=== PATIENT | female | born 1955 | race Caucasian/White ===

== ENCOUNTER 2022-11-26 20:22 | Inpatient (IN) | payer MEDICARE, MEDICAID ==
[~2022-11-26] VITALS: Ht 157.5 cm; Wt 79.6 kg
[2022-11-26 23:29] LABS: ANION GAP 10 mmol/L (8-16); CARBON DIOXIDE 28 mmol/L (22-29); CHLORIDE 101 mmol/L (98-107); CREATININE 0.63 mg/dL (0.60-1.30); GLOMERULAR FILTR. RATE CALC > 60 mL/min (>60); GLUCOSE,RANDOM 115 mg/dL (70-110); POTASSIUM 3.6 mmol/L (3.5-5.1); SODIUM SERUM 139 mmol/L (136-145)
[2022-11-26 23:35] LABS: ALANINE AMINOTRANSFERASE 58 U/L (12-78); ALKALINE PHOSPHATASE 71 U/L (46-116); ASPARTATE AMINOTRANSFERASE 58 U/L (15-37); BILIRUBIN,TOTAL 0.3 mg/dL (0.1-1.0); TOTAL PROTEIN, SERUM 7.1 g/dL (6.4-8.2)
[2022-11-26 23:44] LABS: BASOPHILS % (AUTO) 0.7 % (0.0-2.0); HEMATOCRIT 37.6 % (36-46); HEMOGLOBIN 12.2 g/dL (12.0-16.0); LYMPHOCYTES # (AUTO) 1.6 K/uL (1.0-4.8); LYMPHOCYTES % (AUTO) 20.3 % (22.0-44.0); MEAN CORPUSCULAR HEMOGLOBIN 27.6 pg (26.0-34.0); MEAN CORPUSCULAR HGB CONC 32.4 G/dL (31.0-37.0); MEAN CORPUSCULAR VOLUME 85 fL (80-100); MONOCYTES # (AUTO) 0.9 K/uL (0.1-1.0); MONOCYTES % (AUTO) 11.5 % (2.0-9.0); NEUTROPHILS # (AUTO) 5.1 K/uL (1.8-7.7); NEUTROPHILS % (AUTO) 66.5 % (40.0-70.0); PLATELET COUNT (AUTO) 136 K/uL (150-450); RED BLOOD CELL COUNT(AUTO) 4.41 MIL/uL (4.00-5.20); RED CELL DISTRIBUTION WIDTH 16.7 % (11.5-14.5)
[2022-11-27] MEDS ORDERED: SODIUM CHLORIDE 0.9% 1,000 ML IV ONE (00:15)
[2022-11-27 00:19] LABS: COVID AG,FIA SOURCE NASAL SWAB
[2022-11-27] MEDS ORDERED: MAGNESIUM SULFATE 2 GM, MVI, ADULT NO.1 WITH VIT K 10 ML, THIAMINE 100 MG, FOLIC ACID 1... IV ONE ×10 (02:00)
[2022-11-27] MEDS ORDERED: LORazepam 2 MG TABLET PO ONE (04:15)
[2022-11-27 06:43] LABS: AMPHET/METH SCREEN,URINE NEGATIVE (NEGATIVE); BARBITURATE SCREEN, URINE NEGATIVE (NEGATIVE); BENZODIAZEPINES SCREEN,URINE NEGATIVE (NEGATIVE); CANNABINOID SCREEN,URINE NEGATIVE (NEGATIVE); COCAINE SCREEN,URINE NEGATIVE (NEGATIVE); METHADONE SCREEN, URINE NEGATIVE (NEGATIVE); OPIATE SCREEN,URINE NEGATIVE (NEGATIVE); PHENCYCLIDINE SCREEN,URINE NEGATIVE (NEGATIVE)
[2022-11-27] MEDS ORDERED: LORazepam 1 MG TABLET PO ONE (10:15)
[2022-11-27] MEDS ORDERED: LORazepam 2 MG TABLET PO PRN (10:30)
[2022-11-27] MEDS ORDERED: LISI-893 PO (11:05)
[2022-11-27] MEDS ORDERED: GABA-1181 PO (11:05)
[2022-11-27] MEDS ORDERED: ESCI-8 PO (11:05)
[2022-11-27] MEDS ORDERED: LISI-657 PO (11:05)
[2022-11-27 11:46] LABS: APPEARANCE,URINE CLEAR (CLEAR); BILIRUBIN,URINE NEGATIVE (NEGATIVE); GLUCOSE, URINE (UA) NEGATIVE (NEGATIVE); KETONES,URINE NEGATIVE (NEGATIVE); LEUKOCYTE ESTERASE ,URINE NEGATIVE (NEGATIVE); NITRATE,URINE NEGATIVE (NEGATIVE); OCCULT BLOOD,URINE NEGATIVE (NEGATIVE); PH,URINE 6.5 (5.0-8.0); PROTEIN,URINE 30-70 mg/dL (NEGATIVE); SPECIFIC GRAVITIY, URINE 1.015 (1.003-1.030); UROBILINOGEN,URINE <=1.0 mg/dL (<=1.0)
[2022-11-27] MEDS ORDERED: THIAMINE 100 MG TABLET PO ONE (12:15)
[2022-11-27] MEDS ORDERED: FOLIC ACID 1 MG TABLET PO ONE (12:15)
[2022-11-27] MEDS: LORazepam 2 MG TABLET PO PRN ×3 (13:20→20:54)
[2022-11-28] MEDS: LORazepam 2 MG TABLET PO PRN ×2 (00:44→04:19)
[2022-11-28] MEDS: ZOLPIDEM TARTRATE 10 MG TABLET PO PRN ×2 (00:44→22:38)
[2022-11-28] MEDS: LORazepam 2 MG TABLET PO SCH ×4 (09:27→20:19)
[2022-11-29] MEDS: LORazepam 2 MG TABLET PO SCH ×4 (09:23→20:12)
[2022-11-29] MEDS: LORazepam 2 MG TABLET PO PRN ×3 (22:12→23:55)
[2022-11-29] MEDS ORDERED: MAGNESIUM SULFATE 2 GM, MVI, ADULT NO.1 WITH VIT K 10 ML, THIAMINE 100 MG, FOLIC ACID 1... IV ONE ×5 (22:15)
[2022-11-29] MEDS: ZOLPIDEM TARTRATE 10 MG TABLET PO PRN (23:55)
[2022-11-29] MEDS: QUEtiapine FUMARATE 100 MG TABLET PO PRN (23:56)
[2022-11-30] MEDS ORDERED: LORazepam 1 MG TABLET PO PRN (07:00)
[2022-11-30] MEDS: LORazepam 1 MG TABLET PO SCH ×4 (09:58→21:00)
[2022-11-30] MEDS ORDERED: PNEUMOCOCCAL VACCINE POLYVALENT 0.5 ML VIAL [PPSV23] IM. ONE (22:15)
[2022-11-30 22:43] VITALS: BP 156/99
[2022-11-30 22:45] VITALS: BP 156/99
[2022-11-30 23:10] VITALS: BP 149/86
[2022-12-01] MEDS: QUEtiapine FUMARATE 100 MG TABLET PO PRN ×4 (00:19→20:57)
[2022-12-01] MEDS ORDERED: LOPERAMIDE HCL 2 MG CAPSULE PO PRN (06:30)
[2022-12-01] MEDS ORDERED: GuaiFENesin/D-METHORPHAN [SUGAR-FREE] 200-20MG/10 ML SYRUP UDCUP PO PRN (06:30)
[2022-12-01] MEDS ORDERED: ONDANSETRON HCL 4 MG TABLET PO PRN (06:30)
[2022-12-01] MEDS ORDERED: PETROLATUM,WHITE 28 GM JELLY TP PRN (06:30)
[2022-12-01] MEDS ORDERED: ALBUTEROL SULFATE HFA 90 MCG/PUFF 8 GM INHALER IH PRN (06:30)
[2022-12-01] MEDS ORDERED: CloNIDine HCL 0.1 MG TABLET PO PRN (06:30)
[2022-12-01] MEDS ORDERED: MAGNESIUM HYDROXIDE SUSPENSION 30 ML UDCUP PO PRN (06:30)
[2022-12-01] MEDS ORDERED: NICOTINE 14 MG/24 HOUR PATCH TD PRN (06:30)
[2022-12-01] MEDS ORDERED: MAG HYDROX/AL HYDROX/SIMETH ES 30 ML SUSPENSION UDCUP PO PRN (06:30)
[2022-12-01] MEDS ORDERED: ACETAMINOPHEN 325 MG TABLET PO PRN (06:30)
[2022-12-01] MEDS ORDERED: DOCUSATE SODIUM 100 MG CAPSULE PO PRN (06:30)
[2022-12-01] MEDS ORDERED: IBUPROFEN 400 MG TABLET PO PRN (06:30)
[2022-12-01 08:00] VITALS: BP 154/96
[2022-12-01] MEDS: LISINOPRIL 10 MG TABLET PO SCH (10:13)
[2022-12-01] MEDS: LORazepam 1 MG TABLET PO PRN ×3 (10:44→23:09)
[2022-12-01] MEDS: ESCITALOPRAM OXALATE 10 MG TABLET PO SCH (17:20)
[2022-12-01] MEDS: GABAPENTIN 300 MG CAPSULE PO SCH (20:02)
[2022-12-01 20:24] VITALS: BP 133/77
[2022-12-01] MEDS: ZOLPIDEM TARTRATE 10 MG TABLET PO PRN (20:55)
[2022-12-01 23:08] VITALS: BP 158/78
[2022-12-02 08:50] VITALS: BP 118/67
[2022-12-02] MEDS: ESCITALOPRAM OXALATE 10 MG TABLET PO SCH (08:51)
[2022-12-02] MEDS: GABAPENTIN 300 MG CAPSULE PO SCH (08:51)
[2022-12-02] MEDS: LISINOPRIL 10 MG TABLET PO SCH (08:51)
[2022-12-02 11:08] VITALS: BP 126/72
[2022-12-02 11:19] VITALS: BP 118/67
== END 2022-12-02 12:00 | disposition short-term general hospital (02) | DRG 885 ==
LOC: EMS 20:26 → 3EI 11-30 16:16
PROVIDERS: ADMIT Psychiatry & Neurology Psychiatry; ATTEND Psychiatry & Neurology Psychiatry
DX: F33.2 Major depressive disorder, recurrent severe without psychotic features (principal); R45.851 Suicidal ideations; Z20.822 Contact with and (suspected) exposure to COVID-19; F10.129 Alcohol abuse with intoxication, unspecified; F41.9 Anxiety disorder, unspecified; E78.5 Hyperlipidemia, unspecified; E83.42 Hypomagnesemia; I10 Essential (primary) hypertension; Y90.8 Blood alcohol level of 240 mg/100 ml or more; E66.9 Obesity, unspecified; R73.9 Hyperglycemia, unspecified; Z79.899 Other long term (current) drug therapy; Z68.32 Body mass index [BMI] 32.0-32.9, adult
CPT/HCPCS: 80053; 80307; 81003; 83735; 84484; 85025; 85379; 96361; 96365; 99291; G0480; J3411; J3475; J3490; J7030; 36415-L1; 36415-TC